=== PATIENT | female | born 1985 | race Caucasian/White ===

== ENCOUNTER 2020-01-08 08:01 | Emergency (ER) | payer OTHER, SELFPAY ==
[2020-01-08 08:15] VITALS: BP 161/90; PULSE 109; RESP 16; TEMP 36.8; O2SAT 100
--- NOTE | 2020-01-08 08:18 | ED.GENADULT ---
HPI - General Adult General Chief complaint: Extremity Injury, Lower Stated complaint: Cellulitis/R leg Time Seen by Provider: 01/08/20 08:19 Source: patient and RN notes reviewed Limitations: no limitations History of Present Illness HPI narrative: This is 34 years old female presents to the office for an evaluation of of her right leg pain. Symptoms began 6days ago with redness; consistent with her previous history of cellulitis secondary to her psoriasis. [facility]; who prescribed her antibiotic and steroid cream. She noticed the redness has not getting bigger; however it has not gone down either. She normally gets steroid pills if antibiotic does not work. Denies fever, abdominal pain or vomiting. She is currently under a lot stress because her is currently hospitalized for colon cancer; which contributed to her high blood pressure/heart rate. Related Data Home Medications Medication Instructions Recorded Confirmed sulfamethoxazole-trimethoprim 1 BID 01/08/20 triamcinolone acetonide TOPICAL 01/08/20 Allergies Allergy/AdvReac Type Severity Reaction Status Date / Time No Known Allergies Allergy Verified 01/08/20 08:20 Review of Systems Review of Systems: Narrative: CONSTITUTIONAL: Denies fever or feeling ill ENT: Denies congestion CARDIOVASCULAR: Denies chest pain RESPIRATORY: Denies cough or dsypnea GASTROINTESTINAL: Denies abdominal pain, nausea, vomiting GENITOURINARY: Denies urinary symptoms or discharge SKIN: Admits to history of psoasis in lower extremitites MUSCULOSKELETAL: Reports right lower posterior leg redness, warmths and slightly painful NEUROLOGIC: Denies lightheaded or dizziness PMFSH Past Medical History Medical History (Updated 01/08/20 @ 09:12 by WHIT Ferguson) Psoriasis Social History Social History Gender identity (if verbalized by the patient): Female Comments At time of signature, I agree with nursing past medical, surgical, social and family history. There is no relevant family history pertinent to the presenting complaint. Exam Narrative: Exam Narrative: GENERAL: This is a well-nourished, well-developed patient, in no apparent distress. CARDIOVASCULAR: Regular rate and rhythm without murmurs, gallops, or rubs. RESPIRATORY: Clear to auscultation. Breath sounds equal bilaterally. No wheezes, rales, or rhonchi. GASTROINTESTINAL: Abdomen soft, non-tender, nondistended. Bowel sounds are active. No hepato-splenomegaly, or palpable masses. No guarding. SKIN: warm, intact with no suspicious lesions or rash, good texture and turgor. NEURO: awake, alert, and oriented to person, place and time. There were no obvious focal neurologic abnormalities. Steady gait EXTREMITIES: Left leg noted scatter psoasis without secondary cellulitis. Right posterior lower calf noted edematous, warmth, tender to palpation with erythema with clear demarcation; scatter psoasis also noted. [place] Coma Scale Eye Opening: Spontaneous 4 [place] Coma Scale Motor: Obeys Commands 6 [place] Coma Scale Verbal: Oriented 5 Course Vital Signs Vital signs: Vital Signs Temperature 98.3 F 01/08/20 08:15 Pulse Rate 109 H 01/08/20 08:15 Respiratory Rate 16 01/08/20 08:15 Blood Pressure 161/90 H 01/08/20 08:15 Pulse Oximetry 100 01/08/20 08:15 Temperature 98.3 F 01/08/20 08:15 Pulse Rate 109 H 01/08/20 08:15 Respiratory Rate 16 01/08/20 08:15 Blood Pressure 161/90 H 01/08/20 08:15 Pulse Oximetry 100 01/08/20 08:15 Medical Decision Making MDM Narrative Medical decision making narrative: elevated BP noted; recommend follow up with PCP in 1-2week; discharge instructions reviewed with patient, as well as provided in writing per nursing staff. The instructions also include specific and strict return/GO TO THE ER as well as f/u information. All questions have been answered
== END 2020-01-08 08:40 | disposition home or self-care (01) ==
PROVIDERS: Emergency Provider Nurse Practitioner; PCP Family Medicine
DX: L40.9 Psoriasis, unspecified (principal)
CPT/HCPCS: 99203; G0463

== ENCOUNTER 2024-01-13 09:22 | Emergency (ER) | payer SELFPAY ==
[2024-01-13 09:34] VITALS: BP 134/96; PULSE 117; RESP 16; TEMP 37.1; O2SAT 99
--- NOTE | 2024-01-13 10:38 | ED.GENADULT ---
HPI - General Adult General Chief complaint: Upper Respiratory Infection Stated complaint: congestion,sore throat Time Seen by Provider: 01/13/24 10:36 Source: patient Mode of arrival: ambulatory Limitations: no limitations History of Present Illness HPI narrative: 38 year female presents to [facility] with complaint of congestion and sore throat for 2 days. Patient denies headache, GI complaints, headache. patient denies any known allergies. Patient has been attempting to treat with ibuprofen at home With little relief. patient able to control secretions. Patient able to tolerate fluids by mouth. Related Data Home Medications Medication Instructions Recorded Confirmed escitalopram oxalate 20 mg tablet 20 mg PO DAILY 01/13/24 01/13/24 metoprolol tartrate 25 mg tablet 25 mg PO DAILY 01/13/24 01/13/24 Allergies Allergy/AdvReac Type Severity Reaction Status Date / Time No Known Allergies Allergy Verified 01/13/24 10:31 Review of Systems Review of Systems: All systems reviewed & are unremarkable except as noted in HPI and below Constitutional: Constitutional: Reports no additional constitutional complaints Eyes: Eyes: Reports no additional eye complaints ENT: Reports system reviewed and no additional complaints, except as documented, Reports nasal congestion and Reports sore throat Cardiovascular: Cardiovascular: Reports no additional cardiovascular complaints, Denies chest pain and Denies dyspnea Respiratory: Respiratory: Reports no additional respiratory complaints, Denies cough and Denies dyspnea Musculoskeletal: Musculoskeletal: Reports no additional musculoskeletal complaints Neurologic: Reports system reviewed and no additional complaints, except as documented Psychiatric: Psychiatric: Reports no additional psychiatric complaints [facility] Past Medical History Medical History (Updated 01/13/24 @ 10:50 by Eileen Andres APRN) Psoriasis Social History Social History Gender identity (if verbalized by the patient): Female Comments At the time of my signature, I reviewed and agree with the nursing past medical, surgical, social, and family history. There is no relevant family history pertinent to the patient complaint. Exam Const: General: cooperative, comfortable, no acute distress, alert, ill appearing and well nourished Nutritional Appearance: well nourished Orientation/consciousness: patient oriented x3 Limitations: no limitations HENMT: Head: normal to inspection Ears: external ears normal Face/Nose/Sinus: Normal external nose present, Normal nares present, normal facial exam, No erythema and No edema Face and sinus: normal facial exam, no erythema and no edema Mouth: Yes Normal oral and palatal mucosa present Throat: tonsils normal, uvula midline and posterior oropharynx abnormal erythema Eyes: General: appearance normal, both eyes and all related structures Neck: Neck: normal visual inspection, full ROM and no meningeal signs Lymphatic: no lymphadenopathy noted and no lymphedema noted Chest: Chest palpation & inspection: normal inspection of the chest Resp: Effort & Inspection: normal respiratory effort and able to speak in complete sentences Auscultation: clear to auscultation bilaterally Cardio: Jugular venous distension: no JVD Rate: regular rate Rhythm: regular rhythm Back/Spine/Pelvis: Cervical Spine: cervical ROM normal Skin: General skin exam: normal color, no rashes or lesions noted and turgor normal Neuro: General: patient oriented x3, gait normal, moves all extremities and no meningeal signs Speech: normal speech Gait exam (Neuro): Normal gait present Extrem: General: normal to inspection, full ROM and capillary refill normal Psych: Appearance: grossly normal and well kempt Course Course Emergency Course: Some parts of this dictation were generated by voice recognition software and may conta
== END 2024-01-13 10:42 | disposition home or self-care (01) ==
PROVIDERS: Emergency Provider Nurse Practitioner Family; PCP Family Medicine
DX: U07.1 COVID-19 (principal); L40.9 Psoriasis, unspecified
CPT/HCPCS: 87081; 87426; 87804; 87880; 99213; G0463